=== PATIENT | female | born 1975 | race Caucasian/White ===

== ENCOUNTER 2021-03-09 08:36 | Emergency (ER) | payer MEDICAID | END 2021-03-09 09:33 | disposition left against medical advice (07) | LOC: MW.ED 08:36 | DX: M54.9 Dorsalgia, unspecified (principal); Z53.21 Procedure and treatment not carried out due to patient leaving prior to being seen by health care provider ==

== ENCOUNTER 2022-04-15 22:16 | Emergency (ER) | payer SELFPAY | END 2022-04-16 00:49 | disposition home or self-care (01) | LOC: MW.ED 22:16 | DX: T74.11XA Adult physical abuse, confirmed, initial encounter (principal); Z79.899 Other long term (current) drug therapy; Z91.013 Allergy to seafood | CPT/HCPCS: 99283 ==

== ENCOUNTER 2022-04-20 17:05 | Emergency (ER) | payer SELFPAY ==
[2022-04-20] MEDS ORDERED: LORazepam 2 MG/ML SDV IVPUSH ONE (17:17)
[2022-04-20] MEDS ORDERED: Sodium Chloride 0.9% 1,000 ML IV ONE (17:17)
[2022-04-20 18:12] LABS: CARBON DIOXIDE,CO2 22.2 mmol/L (21.0-32.0); POTASSIUM,K 3.4 mmol/L (3.5-5.1)
[2022-04-20] MEDS ORDERED: Labetalol 100 MG/20 ML MDV IVPUSH ONE (19:17)
[2022-04-20] MEDS ORDERED: Potassium Chloride 20 MEQ in Premix Bag 1 BAG IV ONE (19:36)
[2022-04-20] MEDS ORDERED: Magnesium Sulfate/Water 2 GM in Premix Bag 1 BAG IV ONE (19:36)
[2022-04-20] MEDS ORDERED: Sodium Chloride 0.9% 250 ML IV SCH (19:45)
== END 2022-04-20 20:30 ==
LOC: MW.ED 17:05
DX: U07.1 COVID-19 (principal); S06.360A Traumatic hemorrhage of cerebrum, unspecified, without loss of consciousness, initial encounter; Z91.013 Allergy to seafood; Z79.899 Other long term (current) drug therapy; W01.198A Fall on same level from slipping, tripping and stumbling with subsequent striking against other object, initial encounter
CPT/HCPCS: 36415; 70450; 70486; 72125; 80053; 80305; 80307; 83735; 84703; 85025; 87635; 96361; 96365; 96368; 96375; 99285; J2060; J3475; J3480; J7030; J7050; 99291; U0002